=== PATIENT | male | born 1990 | race Caucasian/White ===

== ENCOUNTER 2017-02-07 07:14 | Day surgery (SDC) | payer BC ==
[~2017-02-07] VITALS: Ht 180.3 cm; Wt 85.9 kg
[2017-02-07] VITALS (18 sets, daily range): BP systolic 118–144; BP diastolic 65–88; PULSE 78–132; RESP 13–22; TEMP 97.8–98; O2SAT 97–100; Ht 180.3 cm; Wt 85.9 kg
[~2017-02-07 07:14] MED LIST: LIDOCAINE 1% (10mg/ml) 2ml SDV INJ ONE; LR 1,000 ML IV SCH; MULT-933 PO
[2017-02-07] MEDS ORDERED: SALINE FLUSH 10ml SYRINGE ONE ×2 (10:17→10:41)
[2017-02-07] MEDS ORDERED: FENTANYL 100mcg/2ml INJECTION IV PRN (10:17)
[2017-02-07] MEDS ORDERED: MIDAZOLAM 5mg/5ml INJECTION IV PRN (10:17)
[2017-02-07] MEDS ORDERED: MIDAZOLAM 5mg/5ml INJECTION ONE ×3 (10:17→10:27)
[2017-02-07] MEDS ORDERED: FENTANYL 100mcg/2ml INJECTION ONE ×2 (10:17→10:41)
[2017-02-07] MEDS ORDERED: DiphenhydrAMINE 50 MG/ML INJECTION ONE (10:30)
[2017-02-07] MEDS ORDERED: DiphenhydrAMINE 50 MG/ML INJECTION IV ONE (11:00)
[2017-02-07] MEDS ORDERED: MESA800T PO (11:16)
--- NOTE | 2017-02-07 16:16 | OPNOTEF ---
DATE OF OPERATION 02/07/2017 INDICATION Rectal bleeding with abdominal pain. OPERATION Colonoscopy into the terminal ileum. SURGEON Hernandez Whittaker D.O. ASA CLASSIFICATION I Consent signed and on the chart. Routine monitoring with ECG, continuous oximetry and noninvasive blood pressure was performed throughout the procedure and found to be within normal limits. IV sedation was performed with a total of 13 mg of Versed and 120 mcg of Fentanyl. He was also given 50 mg of Benadryl. Prior to the procedure, the patient was brought to the endoscopy lab where a brief review of his medical history and physical exam was performed. The procedure was described to him and he was agreeable to continue. All questions were answered. DESCRIPTION OF OPERATION He was given IV sedation and placed in the left lateral decubitus position. A digital rectal exam was normal. The colonoscope was introduced through the anal verge and immediately noting colitis which continued throughout the colon. I then intubated the ileocecal valve and advanced into the terminal ileum which had a normal appearance. The endoscope was brought back into the cecum and biopsies were performed at that site as well as the ascending colon, the transverse colon, descending colon and between 10 and 25 cm. Findings were most consistent with ulcerative colitis with pancolitis sparing the terminal ileum. He tolerated the procedure well. There were no complications. IMPRESSION 1. Terminal ileum biopsied. 2. Pancolitis with multiple biopsies at the cecum, ascending, transverse, descending colon and between 10 and 25 cm. Again, he tolerated the procedure well. There were no complications. RECOMMENDATIONS 1. Review the path report when available. 2. I will start him on Asacol. 3. We need to repeat this procedure in 6-12 months and consideration should be given to evaluate for primary sclerosing cholangitis. DOTD
== END 2017-02-07 11:58 | disposition home or self-care (01) ==
LOC: NSC 07:14
PROVIDERS: ATTEND Internal Medicine
DX: K52.89 Other specified noninfective gastroenteritis and colitis (principal); K58.8 Other irritable bowel syndrome; K92.1 Melena
CPT/HCPCS: 45380; J1200; J2250; J3010; J7120